=== PATIENT | female | born 1950 ===

== ENCOUNTER 2017-06-20 15:31 | Observation (INO) | payer OTHER ==
--- NOTE | 2017-06-20 16:20 | ED PDOC ---
HPI: Chest Pain Time Seen by Provider: 06/20/17 15:59 Chief Complaint (Nursing): Chest Pain Chief Complaint (Provider): Chest Pain History Per: Patient History/Exam Limitations: no limitations Onset/Duration Of Symptoms: Days (2) Current Symptoms Are (Timing): Intermittent Episodes Additional Complaint(s): Patient is a 66 y/o female with a past medical history of hypertension presenting to the emergency department for left sided intermittent chest pressure since yesterday with associated shortness of breath. Notes that she is visiting from [facility], first coming in ten days ago. Denies fever, cough, calf pain, leg swelling, smoking, or other complaints. PCP: none provided. Past Medical History Reviewed: Historical Data, Nursing Documentation, Vital Signs Vital Signs: Last Vital Signs Temp 98.3 F 06/21/17 11:58 Pulse 68 06/21/17 11:58 Resp 18 06/21/17 11:58 BP 123/68 06/21/17 11:58 Pulse Ox 96 06/21/17 11:58 - Medical History PMH: HTN - Surgical History Surgical History: No Surg Hx - Family History Family History: States: Unknown Family Hx - Social History Current smoker - smoking cessation education provided: No Ex-Smoker (has not smoked in the last 12 months): No Alcohol: None Drugs: Denies - Home Medications Home Medications: Ambulatory Orders Medication Instructions Recorded Aspirin [Aspirin Chewable] 81 mg PO DAILY #30 chew 06/21/17 Atorvastatin [Lipitor] 20 mg PO DAILY #30 tab 06/21/17 Losartan/Hydrochlorothiazide 1 tab PO DAILY #30 tablet 06/21/17 [Losartan-Hctz 100-25 mg Tab] - Allergies Allergies/Adverse Reactions: Allergies Allergy/AdvReac Type Severity Reaction Status Date / Time No Known Allergies Allergy Verified 06/20/17 15:34 Review of Systems ROS Statement: Except As Marked, All Systems Reviewed And Found Negative Constitutional: Negative for: Fever Cardiovascular: Positive for: Chest Pain (left sided, intermittent) Respiratory: Negative for: Cough, Shortness of Breath Musculoskeletal: Negative for: Other (calf pain or leg swelling) Physical Exam - Reviewed Nursing Documentation Reviewed: Yes Vital Signs Reviewed: Yes - Physical Exam Appears: Positive for: Well, Non-toxic, No Acute Distress Head Exam: Positive for: ATRAUMATIC, NORMAL INSPECTION, NORMOCEPHALIC Skin: Positive for: Normal Color, Warm, Dry Eye Exam: Positive for: Normal appearance Neck: Positive for: Normal, Painless ROM, Supple Cardiovascular/Chest: Positive for: Regular Rate, Rhythm. Negative for: Murmur Respiratory: Positive for: Normal Breath Sounds. Negative for: Accessory Muscle Use, Respiratory Distress Gastrointestinal/Abdominal: Positive for: Normal Exam, Soft. Negative for: Tenderness Extremity: Positive for: Normal ROM. Negative for: Pedal Edema, Calf Tenderness , Swelling Neurologic/Psych: Positive for: Alert, Oriented (x3) - Laboratory Results Result Diagrams: 06/21/17 05:00 06/21/17 03:47 - ECG ECG: Positive for: Interpreted By Me, Viewed By Me ECG Rhythm: Positive for: Normal QRS, Normal ST Segment, Sinus Rhythm. Negative for: ST/T Changes Rate: 92 O2 Sat by Pulse Oximetry: 98 (RA) Pulse Ox Interpretation: Normal Medical Decision Making Medical Decision Making: Time: 16:49 Initial impression: Chest pain Initial plan: Labs ED Urine Dipstick Chest X-Ray Urinalysis Reevaluation Scribe Attestation: Documented by Manda Thacker, acting as a scribe for Rocio Nuñez MD. Provider Scribe Attestation: All medical record entries made by the Scribe were at my direction and personally dictated by me. I have reviewed the chart and agree that the record accurately reflects my personal performance of the history, physical exam, medical decision making, and the department course for this patient. I have also personally directed, reviewed, and agree with the discharge instructions and disposition. Disposition - Clinical Impression Clinical Impression: Chest pain - Disposition Disposition: Transfer of Care Disposition Time: 17:00 Condition: STABLE Patient Signed Over To: Vanda Chávez
--- NOTE | 2017-06-20 17:11 | ED PDOC ---
- ECG O2 Sat by Pulse Oximetry: 98 (RA) Pulse Ox Interpretation: Normal - Radiology X-Ray: Interpreted by Me, Viewed By Me X-Ray Interpretation: No Acute Disease Medical Decision Making Medical Decision Makin:00 Patient signed out to me from Dr. Nuñez. Pending labs and chest x-ray. Scribe Attestation: Documented by Manda Thacker, acting as a scribe for Vanda Chávez MD. Provider Scribe Attestation: All medical record entries made by the Scribe were at my direction and personally dictated by me. I have reviewed the chart and agree that the record accurately reflects my personal performance of the history, physical exam, medical decision making, and the department course for this patient. I have also personally directed, reviewed, and agree with the discharge instructions and disposition. Disposition Counseled Patient/Family Regarding: Studies Performed, Diagnosis - Clinical Impression Clinical Impression: Chest pain - POA Present On Arrival: None - Disposition Disposition: Transfer of Care Disposition Time: 19:00 Condition: STABLE Forms: [employer] ([place]) Patient Signed Over To: Shiv Gunderson
[2017-06-20 18:44] LABS: BASO % 0.3 % (0.0-2.0); EOS % 0.6 % (0.0-4.0); HEMATOCRIT 36.3 % (34.0-47.0); LYMPH # 2.5 K/uL (1.0-4.3); LYMPH % 31.2 % (20.0-40.0); MEAN CELL VOLUME 89.5 fl (81.0-99.0); MEAN CORPUSCULAR HEMOGLOBIN 29.2 pg (27.0-31.0); MEAN CORPUSCULAR HGB CONC 32.6 g/dL (33.0-37.0); MEAN PLATELET VOLUME 8.3 fl (7.2-11.7); MONO # 0.6 K/uL (0.0-0.8); MONO % 7.8 % (0.0-10.0); NEUT # 4.9 K/uL (1.8-7.0); NEUT % 60.1 % (50.0-75.0); NRBC % 0.1 % (0.0-0.0); WHITE BLOOD COUNT 8.1 K/uL (4.8-10.8)
[2017-06-20 18:53] LABS: RBC URINE 2 /hpf (0-3); URINE BILIRUBIN NEGATIVE (NEGATIVE); URINE BLOOD NEGATIVE (NEGATIVE); URINE COLOR STRAW (YELLOW); URINE GLUCOSE (UA) NEG (Normal); URINE KETONE NEGATIVE (NEGATIVE); URINE LEUKOCYTE ESTERASE NEG Leu/uL (Negative); URINE PROTEIN NEGATIVE (NEGATIVE); URINE UROBILINOGEN 0.2-1.0 mg/dL (0.2-1.0); WBC URINE 1 /hpf (0-5)
[2017-06-20 18:53] LABS: ALB/GLOB RATIO 1.4 (1.0-2.1); ALKALINE PHOSPHATASE 80 U/L (38-126); ALT/SGPT 36 U/L (9-52); AST/SGOT 33 U/L (14-36); BILIRUBIN,TOTAL 0.3 mg/dl (0.2-1.3); BLOOD UREA NITROGEN 13 mg/dl (7-17); CALCIUM 9.8 mg/dL (8.4-10.2); CARBON DIOXIDE 27 mmol/L (22-30); CHLORIDE 102 mmol/L (98-107); GFR AFRICAN-AMERICAN > 60; GLUCOSE,RANDOM 126 mg/dL (65-105); POTASSIUM 4.2 MMOL/L (3.6-5.0); SODIUM 143 mmol/l (132-148); TOTAL PROTEIN 7.5 G/DL (6.3-8.2)
--- NOTE | 2017-06-20 19:08 | RAD ---
HISTORY: Chest pain. COMPARISON: No prior. FINDINGS: LUNGS: No active pulmonary disease. PLEURA: No significant pleural effusion identified, no pneumothorax apparent. CARDIOVASCULAR: No radiographic findings to suggest acute or significant cardiovascular disease. OSSEOUS STRUCTURES: No significant abnormalities. VISUALIZED UPPER ABDOMEN: Normal. OTHER FINDINGS: None. IMPRESSION: No active disease.
[2017-06-20 19:09] LABS: PARTIAL THROMBOPLASTIN TIME 29.4 Seconds (25.6-37.1)
--- NOTE | 2017-06-20 19:49 | ED PDOC ---
- Laboratory Results Result Diagrams: 06/20/17 18:27 06/20/17 18:27 - ECG O2 Sat by Pulse Oximetry: 98 (RA) Pulse Ox Interpretation: Normal Medical Decision Making Medical Decision MakinPM: Workup negative so far, Pt. seen and examined at the bedside, pt. states she's feeling better but still having CP intermittently. Will order ASA and admit to OBs Tele. Case d/w w/ Dr. Fan, hospitalist. Disposition - Clinical Impression Clinical Impression: Chest pain - POA Present On Arrival: None - Disposition Disposition: Hospitalized as Observation Patient Disposition Time: 19:30 Condition: STABLE Forms: [facility] ([place]est[place])
--- NOTE | 2017-06-20 19:52 | CP.PCM.HP ---
Past Patient History - Past Social History Alcohol: None Drugs: Denies - CARDIAC Hx Hypertension: Yes - PULMONARY Hx Respiratory Disorders: No - NEUROLOGICAL Hx Neurological Disorder: No - HEENT Hx HEENT Problems: No - RENAL Hx Chronic Kidney Disease: No - ENDOCRINE/METABOLIC Hx Endocrine Disorders: No - HEMATOLOGICAL/ONCOLOGICAL Hx Blood Disorders: No - INTEGUMENTARY Hx Dermatological Problems: No - MUSCULOSKELETAL/RHEUMATOLOGICAL Hx Musculoskeletal Disorders: No - GASTROINTESTINAL Hx Gastrointestinal Disorders: No - GENITOURINARY/GYNECOLOGICAL Hx Genitourinary Disorders: No - PSYCHIATRIC Hx Psychophysiologic Disorder: No Hx Substance Use: No - SURGICAL HISTORY Hx Surgeries: Yes Hx Hysterectomy: Yes - ANESTHESIA Hx Anesthesia: Yes Meds Allergies/Adverse Reactions: Allergies Allergy/AdvReac Type Severity Reaction Status Date / Time No Known Allergies Allergy Verified 06/20/17 15:34 Results - Vital Signs Recent Vital Signs: Last Vital Signs Temp 98.4 F 06/20/17 15:34 Pulse 92 H 06/20/17 17:12 Resp 16 06/20/17 15:34 BP 137/73 06/20/17 15:34 Pulse Ox 98 06/20/17 19:49 - Labs Result Diagrams: 06/20/17 18:27 06/20/17 18:27 Labs: Laboratory Results - last 24 hr 06/20/17 06/20/17 06/20/17 18:27 18:27 18:27 WBC 8.1 RBC 4.05 Hgb 11.8 L Hct 36.3 MCV 89.5 MCH 29.2 MCHC 32.6 L RDW 14.0 Plt Count 310 MPV 8.3 Neut % (Auto) 60.1 Lymph % (Auto) 31.2 [place] % (Auto) 7.8 Eos % (Auto) 0.6 Baso % (Auto) 0.3 Neut # 4.9 Lymph # 2.5 [place] # 0.6 Eos # 0.0 Baso # 0.0 PT 10.8 INR 1.1 APTT 29.4 D-Dimer, Quantitative 128 Sodium 143 Potassium 4.2 Chloride 102 Carbon Dioxide 27 Anion Gap 19 BUN 13 Creatinine 0.9 Est GFR ( Amer) > 60 Est GFR (Non-Af Amer) > 60 Random Glucose 126 H Calcium 9.8 Total Bilirubin 0.3 AST 33 ALT 36 Alkaline Phosphatase 80 Troponin I < 0.0120 Total Protein 7.5 Albumin 4.4 Globulin 3.2 Albumin/Globulin Ratio 1.4 Urine Color Urine Clarity Urine pH Ur Specific [place] Urine Protein Urine Glucose (UA) Urine Ketones Urine Blood Urine Nitrate Urine Bilirubin Urine Urobilinogen Ur Leukocyte Esterase Urine RBC (Auto) Urine Microscopic WBC Ur Squamous Epith Cells 06/20/17 18:42 WBC RBC Hgb Hct MCV MCH MCHC RDW Plt Count MPV Neut % (Auto) Lymph % (Auto) [place] % (Auto) Eos % (Auto) Baso % (Auto) Neut # Lymph # [place] # Eos # Baso # PT INR APTT D-Dimer, Quantitative Sodium Potassium Chloride Carbon Dioxide Anion Gap BUN Creatinine Est GFR ( Amer) Est GFR (Non-Af Amer) Random Glucose Calcium Total Bilirubin AST ALT Alkaline Phosphatase Troponin I Total Protein Albumin Globulin Albumin/Globulin Ratio Urine Color Straw Urine Clarity Clear Urine pH 6.0 Ur Specific [place] 1.013 Urine Protein Negative Urine Glucose (UA) Neg Urine Ketones Negative Urine Blood Negative Urine Nitrate Negative Urine Bilirubin Negative Urine Urobilinogen 0.2-1.0 Ur Leukocyte Esterase Neg Urine RBC (Auto) 2 Urine Microscopic WBC 1 Ur Squamous Epith Cells < 1 Assessment & Plan - Date & Time Date: 06/20/17 Time: 19:52
--- NOTE | 2017-06-20 20:18 | CP.PCM.HP ---
History of Present Illness - History of Present Illness History of Present Illness: 66 yo female with history of HTN came in complaining of severe, on and off left sided chest pain radiating to the back since 3 days ago. Patient described pain as like gas and associated with SOB. Denied fever, chills, nausea or vomiting. Present on Admission - Present on Admission Any Indicators Present on Admission: No History of DVT/PE: No History of Uncontrolled Diabetes: No Urinary Catheter: No Decubitus Ulcer Present: No Review of Systems - Review of Systems All systems: reviewed and no additional remarkable complaints except (aside from those mentioned above, 12 point system review were negative by me) Past Patient History - Tetanus Immunizations Tetanus Immunization: Unknown - Past Social History Smoking Status: Never Smoked Alcohol: None Drugs: Denies - CARDIAC Hx Hypertension: Yes - PULMONARY Hx Respiratory Disorders: No - NEUROLOGICAL Hx Neurological Disorder: No - HEENT Hx HEENT Problems: No - RENAL Hx Chronic Kidney Disease: No - ENDOCRINE/METABOLIC Hx Endocrine Disorders: No - HEMATOLOGICAL/ONCOLOGICAL Hx Blood Disorders: No - INTEGUMENTARY Hx Dermatological Problems: No - MUSCULOSKELETAL/RHEUMATOLOGICAL Hx Musculoskeletal Disorders: No - GASTROINTESTINAL Hx Gastrointestinal Disorders: No - GENITOURINARY/GYNECOLOGICAL Hx Genitourinary Disorders: No - PSYCHIATRIC Hx Psychophysiologic Disorder: No Hx Substance Use: No - SURGICAL HISTORY Hx Surgeries: Yes Hx Hysterectomy: Yes - ANESTHESIA Hx Anesthesia: Yes Meds Allergies/Adverse Reactions: Allergies Allergy/AdvReac Type Severity Reaction Status Date / Time No Known Allergies Allergy Verified 06/20/17 15:34 Physical Exam - Constitutional Appears: No Acute Distress - Head Exam Head Exam: ATRAUMATIC - Eye Exam Eye Exam: absent: Scleral icterus - ENT Exam ENT Exam: Mucous Membranes Moist - Neck Exam Neck exam: Negative for: Meningismus - Respiratory Exam Respiratory Exam: absent: Rhonchi, Wheezes, Respiratory Distress - Cardiovascular Exam Cardiovascular Exam: REGULAR RHYTHM, +S1, +S2 - GI/Abdominal Exam GI & Abdominal Exam: Soft. absent: Tenderness - Rectal Exam Rectal Exam: Deferred - Extremities Exam Extremities exam: Negative for: calf tenderness, pedal edema - Neurological Exam Neurological exam: Alert, Oriented x3 - Psychiatric Exam Psychiatric exam: Normal Affect - Skin Skin Exam: Dry, Intact Results - Vital Signs Recent Vital Signs: Last Vital Signs Temp 98.4 F 06/20/17 15:34 Pulse 92 H 06/20/17 17:12 Resp 16 06/20/17 15:34 BP 137/73 06/20/17 15:34 Pulse Ox 98 06/20/17 19:49 - Labs Result Diagrams: 06/20/17 18:27 06/20/17 18:27 Labs: Laboratory Results - last 24 hr 06/20/17 06/20/17 06/20/17 18:27 18:27 18:27 WBC 8.1 RBC 4.05 Hgb 11.8 L Hct 36.3 MCV 89.5 MCH 29.2 MCHC 32.6 L RDW 14.0 Plt Count 310 MPV 8.3 Neut % (Auto) 60.1 Lymph % (Auto) 31.2 [place] % (Auto) 7.8 Eos % (Auto) 0.6 Baso % (Auto) 0.3 Neut # 4.9 Lymph # 2.5 [place] # 0.6 Eos # 0.0 Baso # 0.0 PT 10.8 INR 1.1 APTT 29.4 D-Dimer, Quantitative 128 Sodium 143 Potassium 4.2 Chloride 102 Carbon Dioxide 27 Anion Gap 19 BUN 13 Creatinine 0.9 Est GFR ( Amer) > 60 Est GFR (Non-Af Amer) > 60 Random Glucose 126 H Calcium 9.8 Total Bilirubin 0.3 AST 33 ALT 36 Alkaline Phosphatase 80 Troponin I < 0.0120 Total Protein 7.5 Albumin 4.4 Globulin 3.2 Albumin/Globulin Ratio 1.4 Urine Color Urine Clarity Urine pH Ur Specific [place] Urine Protein Urine Glucose (UA) Urine Ketones Urine Blood Urine Nitrate Urine Bilirubin Urine Urobilinogen Ur Leukocyte Esterase Urine RBC (Auto) Urine Microscopic WBC Ur Squamous Epith Cells 06/20/17 18:42 WBC RBC Hgb Hct MCV MCH MCHC RDW Plt Count MPV Neut % (Auto) Lymph % (Auto) [place] % (Auto) Eos % (Auto) Baso % (Auto) Neut # Lymph # [place] # Eos # Baso # PT INR APTT D-Dimer, Quantitative Sodium Potassium Chloride Carbon Dioxide Anion Gap BUN Creatinine Est GFR ( Amer) Est GFR (Non-Af Amer) Random Glucose Calcium Total Bilirubin AST ALT Alkaline Phosphatase Troponin I Total Protein Albumin Globulin Albumin/Globulin Ratio Urine Color Straw Urine Clarity Clear Urine pH 6.0 Ur Specific [place] 1.013 Urine Protein Negative Urine Glucose (UA) Neg Urine Ketones Negative Urine Blood Negative Urine Nitrate Negative Urine Bilirubin Negative Urine Urobilinogen 0.2-1.0 Ur Leukocyte Esterase Neg Urine RBC (Auto) 2 Urine Microscopic WBC 1 Ur Squamous Epith Cells < 1 Assessment & Plan (1) Chest pain Status: Acute Comment: place on observation in telemetry. serial Troponins and EKG. ASA 81mg PO daily. NTG sl prn for chest pain. Morphine 2mg IV q 4hrs prn for chest not relieved with above. lipid profile (2) HTN (hypertension) Status: Acute Comment: BP stable. monitor BP. low salt diet
[2017-06-21 00:38] VITALS: RESP 18
[2017-06-21 04:28] LABS: BLOOD UREA NITROGEN 14 mg/dl (7-17); CHLORIDE 103 mmol/L (98-107); GFR AFRICAN-AMERICAN > 60; GLUCOSE,RANDOM 97 mg/dL (65-105); POTASSIUM 3.8 MMOL/L (3.6-5.0); SODIUM 140 mmol/l (132-148)
[2017-06-21 04:29] LABS: CARBON DIOXIDE 32 mmol/L (22-30)
[2017-06-21 04:30] LABS: CALCIUM 9.3 mg/dL (8.4-10.2); CHOLESTEROL 209 mg/dL (0-199)
[2017-06-21 05:21] LABS: BASO % 0.3 % (0.0-2.0); EOS # 0.1 K/uL (0.0-0.7); EOS % 1.4 % (0.0-4.0); HEMATOCRIT 35.5 % (34.0-47.0); LYMPH # 3.2 K/uL (1.0-4.3); LYMPH % 41.3 % (20.0-40.0); MEAN CELL VOLUME 89.6 fl (81.0-99.0); MEAN CORPUSCULAR HEMOGLOBIN 29.5 pg (27.0-31.0); MEAN PLATELET VOLUME 8.1 fl (7.2-11.7); MONO # 0.6 K/uL (0.0-0.8); MONO % 7.8 % (0.0-10.0); NEUT # 3.8 K/uL (1.8-7.0); NEUT % 49.2 % (50.0-75.0); NRBC % 0.1 % (0.0-0.0); RED CELL DISTRIBUTION WIDTH 13.8 % (11.5-14.5); WHITE BLOOD COUNT 7.7 K/uL (4.8-10.8)
[2017-06-21] MEDS ORDERED: Influenza Vaccine 18yr & older 0.5 ML/45 MCG SYR IM ONE (09:00)
[2017-06-21] MEDS ORDERED: Enoxaparin 40 mg Syringe SC SCH (09:00)
[2017-06-21] MEDS ORDERED: Pneumococcal 23-Valent Vaccine IM ONE (09:00)
[2017-06-21] MEDS ORDERED: Pantoprazole 40 mg EC Tab PO SCH (09:00)
--- NOTE | 2017-06-21 10:17 | CP.PCM.DIS ---
Provider - Provider Date of Admission: 06/20/17 19:41 Attending physician: Moo Fan Time Spent in preparation of Discharge (in minutes): 30 Diagnosis - Discharge Diagnosis (1) Chest pain Status: Acute (2) HTN (hypertension) Status: Acute Hospital Course - Lab Results Lab Results: Most Recent Lab Values WBC 7.7 K/uL (4.8-10.8) 06/21/17 05:00 RBC 3.96 Mil/uL (3.80-5.20) 06/21/17 05:00 Hgb 11.7 g/dL (12.0-16.0) L 06/21/17 05:00 Hct 35.5 % (34.0-47.0) 06/21/17 05:00 MCV 89.6 fl (81.0-99.0) 06/21/17 05:00 MCH 29.5 pg (27.0-31.0) 06/21/17 05:00 MCHC 33.0 g/dL (33.0-37.0) 06/21/17 05:00 RDW 13.8 % (11.5-14.5) 06/21/17 05:00 Plt Count 294 K/uL (130-400) 06/21/17 05:00 MPV 8.1 fl (7.2-11.7) 06/21/17 05:00 Neut % (Auto) 49.2 % (50.0-75.0) L 06/21/17 05:00 Lymph % (Auto) 41.3 % (20.0-40.0) H 06/21/17 05:00 [place] % (Auto) 7.8 % (0.0-10.0) 06/21/17 05:00 Eos % (Auto) 1.4 % (0.0-4.0) 06/21/17 05:00 Baso % (Auto) 0.3 % (0.0-2.0) 06/21/17 05:00 Neut # 3.8 K/uL (1.8-7.0) 06/21/17 05:00 Lymph # 3.2 K/uL (1.0-4.3) 06/21/17 05:00 [place] # 0.6 K/uL (0.0-0.8) 06/21/17 05:00 Eos # 0.1 K/uL (0.0-0.7) 06/21/17 05:00 Baso # 0.0 K/uL (0.0-0.2) 06/21/17 05:00 PT 10.8 Seconds (9.8-13.1) 06/20/17 18:27 INR 1.1 (0.9-1.2) 06/20/17 18:27 APTT 29.4 Seconds (25.6-37.1) 06/20/17 18:27 D-Dimer, Quantitative 128 ng/mlDDU (0-230) 06/20/17 18:27 Sodium 140 mmol/l (132-148) 06/21/17 03:47 Potassium 3.8 MMOL/L (3.6-5.0) 06/21/17 03:47 Chloride 103 mmol/L (98-107) 06/21/17 03:47 Carbon Dioxide 32 mmol/L (22-30) H 06/21/17 03:47 Anion Gap 9 (10-20) L 06/21/17 03:47 BUN 14 mg/dl (7-17) 06/21/17 03:47 Creatinine 0.6 mg/dL (0.7-1.2) L 06/21/17 03:47 Est GFR ( Amer) > 60 06/21/17 03:47 Est GFR (Non-Af Amer) > 60 06/21/17 03:47 Random Glucose 97 mg/dL (65-105) 06/21/17 03:47 Calcium 9.3 mg/dL (8.4-10.2) 06/21/17 03:47 Total Bilirubin 0.3 mg/dl (0.2-1.3) 06/20/17 18:27 AST 33 U/L (14-36) 06/20/17 18:27 ALT 36 U/L (9-52) 06/20/17 18:27 Alkaline Phosphatase 80 U/L (38-126) 06/20/17 18:27 Troponin I < 0.0120 ng/mL (0.00-0.120) 06/21/17 07:40 Total Protein 7.5 G/DL (6.3-8.2) 06/20/17 18: Albumin 4.4 g/dL (3.5-5.0) 06/20/17 18: Globulin 3.2 gm/dL (2.2-3.9) 06/20/17 18:27 Albumin/Globulin Ratio 1.4 (1.0-2.1) 06/20/17 18:27 Triglycerides 204 mg/DL (0-149) H 06/21/17 03:47 Cholesterol 209 mg/dL (0-199) H 06/21/17 03:47 LDL Cholesterol Direct 121 mg/dL (0-129) 06/21/17 03:47 HDL Cholesterol 39 MG/DL (30-70) 06/21/17 03:47 Urine Color Straw (YELLOW) 06/20/17 18:42 Urine Clarity Clear (Clear) 06/20/17 18:42 Urine pH 6.0 (5.0-8.0) 06/20/17 18:42 Ur Specific [place] 1.013 (1.003-1.030) 06/20/17 18:42 Urine Protein Negative mg/dL (NEGATIVE) 06/20/17 18:42 Urine Glucose (UA) Neg mg/dL (Normal) 06/20/17 18:42 Urine Ketones Negative mg/dL (NEGATIVE) 06/20/17 18:42 Urine Blood Negative (NEGATIVE) 06/20/17 18:42 Urine Nitrate Negative (NEGATIVE) 06/20/17 18:42 Urine Bilirubin Negative (NEGATIVE) 06/20/17 18:42 Urine Urobilinogen 0.2-1.0 mg/dL (0.2-1.0) 06/20/17 18:42 Ur Leukocyte Esterase Neg [place]/uL (Negative) 06/20/17 18:42 Urine RBC (Auto) 2 /hpf (0-3) 06/20/17 18:42 Urine Microscopic WBC 1 /hpf (0-5) 06/20/17 18:42 Ur Squamous Epith Cells < 1 /hpf (0-5) 06/20/17 18:42 - Hospital Course Hospital Course: 66 yo female with history of HTN came in complaining of severe, on and off left sided chest pain radiating to the back since 3 days ago. Patient described pain as like gas and associated with SOB. Denied fever, chills, nausea or vomiting. Cardiac enzymes trended times three and negative. EKG NSR with no acute ischemia or infarct. Stable to be discharged home with follow up w PCP at [facility]. Discharge Exam - Head Exam Head Exam: ATRAUMATIC, NORMOCEPHALIC - Eye Exam Eye Exam: EOMI, Normal appearance, PERRL - ENT Exam ENT Exam: Mucous Membranes Moist, Normal Oropharynx - Respiratory Exam Respiratory Exam: Clear to PA & Lateral, NORMAL BREATHING PATTERN - Cardiovascular Exam Cardiovascular Exam: RRR, +S1, +S2 - GI/Abdominal Exam GI & Abdominal Exam: Normal Bowel Sounds, Unremarkable - Extremities Exam Extremities exam: normal capillary refill, pedal pulses present - Back Exam Back exam: absent: CVA tenderness (L), CVA tenderness (R) - Neurological Exam Neurological exam: Alert, Oriented x3 - Psychiatric Exam Psychiatric exam: Normal Affect, Normal Mood - Skin Skin Exam: Dry, Normal Color, Warm Discharge Plan - Discharge Medications Prescriptions: Aspirin [Aspirin Chewable] 81 mg PO DAILY #30 chew Atorvastatin [Lipitor] 20 mg PO DAILY #30 tab Losartan/Hydrochlorothiazide [Losartan-Hctz 100-25 mg Tab] 1 tab PO DAILY #30 tablet - Follow Up Plan Condition: STABLE Disposition: HOME/ ROUTINE Referrals: [facility] [Provider Group]
--- NOTE | 2017-06-21 10:45 | CARD ---
APPROVED REPORT EKG Measurement Heart [id number] <Conclusion> Normal sinus rhythm Normal ECG
[2017-06-21 11:58] VITALS: BP 123/68; TEMP 98.3
[2017-06-24 14:54] VITALS: PULSE 92; O2SAT 98
== END 2017-06-21 14:17 | disposition home or self-care (01) ==
LOC: H.ER 15:31 → H.ERHOLD 19:41 → H.TEL 21:42
PROVIDERS: ADMIT Internal Medicine; ATTEND Internal Medicine
DX: R07.9 Chest pain, unspecified (principal); I10 Essential (primary) hypertension; Z23 Encounter for immunization; Z87.891 Personal history of nicotine dependence; Z79.82 Long term (current) use of aspirin; Z90.710 Acquired absence of both cervix and uterus
CPT/HCPCS: 36415; 71010; 80048; 80053; 80061; 81003; 84484; 85025; 85378; 85610; 85730; 90471; 90732; 93005; 99285; G0378; J1650; Q2035